=== PATIENT | female | born 1970 | race African-American/Black ===

== ENCOUNTER 2019-02-28 18:36 | Emergency (ER) | payer OTHER ==
[~2019-02-28] VITALS: Ht 157.5 cm; Wt 78.9 kg
[2019-02-28 18:41] VITALS: BP 179/109
[2019-02-28] MEDS ORDERED: COZAAR 25 MG TA25 MG PO (18:45)
[2019-02-28] MEDS ORDERED: METFORMIN HCL500 MG PO (18:45)
[2019-02-28] MEDS ORDERED: BACTRIM DS TAB1 EACH PO (19:08)
== END 2019-02-28 19:28 | disposition home or self-care (01) ==
LOC: ER 18:36
DX: L02.212 Cutaneous abscess of back [any part, except buttock and flank] (principal); Z88.8 Allergy status to other drugs, medicaments and biological substances

== ENCOUNTER → 2020-06-23 | Outpatient (CLI) | payer OTHER ==
[~2020-06-23] MED LIST: BACTRIM DS TAB1 EACH PO; COZAAR 25 MG TA25 MG PO; METFORMIN HCL500 MG PO
[2020-06-23 08:38] LABS: ABSOLUTE NEUTROPHILS 2.7 thou/uL (1.4-8.2); EOSINOPHILS 2.9 % (0.0-3.0); HEMATOCRIT 40.9 % (37.0-47.0); HEMOGLOBIN 13.5 gm/dL (12.0-15.0); LYMPHOCYTES 43.8 % (24.0-44.0); MCH 29.2 pg (26.0-34.0); MCHC 32.9 g/dL (28.0-37.0); MCV 88.8 fL (80.0-100.0); MONOCYTES 7.8 % (1.0-8.0); PLATELET COUNT 283 thou/uL (150-400); POLYS 44.5 % (36.0-66.0); RBC 4.61 mil/uL (4.20-5.00); RDW 12.7 % (10.5-14.5); WBC 6.2 thou/uL (4.0-11.0)
[2020-06-23 08:43] LABS: URINE BILIRUBIN NEGATIVE (Negative); URINE BLOOD NEGATIVE (Negative); URINE CLARITY CLEAR; URINE COLOR YELLOW; URINE GLUCOSE-RANDOM* 3+ (Negative); URINE KETONES NEGATIVE (Negative); URINE LEUKOCYTES-REFLEX NEGATIVE (Negative); URINE NITRITE-REFLEX NEGATIVE (Negative); URINE PROTEIN (DIPSTICK) NEGATIVE (Negative); URINE UROBILINOGEN 0.2 E.U./dl (0.2-1.0)
[2020-06-23 08:57] LABS: ALBUMIN 3.7 g/dL (3.4-5.0); ANION GAP 10 mmol/L (7-16); BUN 6 mg/dL (7-18); CALCIUM 9.7 mg/dL (8.5-10.1); CHLORIDE 101 mmol/L (98-107); CHOLESTEROL 228 mg/dL (<200); CO2 27 mmol/L (21-32); CREATININE 0.8 mg/dL (0.6-1.0); GLUCOSE 352 mg/dL (74-106); HDL CHOLESTEROL 64 mg/dL (>40); LDL CHOLESTEROL 140 mg/dL (<100); POTASSIUM 4.2 mmol/L (3.5-5.1); SGOT 17 U/L (15-37); SGPT 27 U/L (30-65); SODIUM 138 mmol/L (136-145); TC:HDL 3.6 Ratio (Not establshd); TOTAL BILIRUBIN 0.4 mg/dL (0.2-1.0); TOTAL PROTEIN 7.5 g/dL (6.4-8.2); TRIGLYCERIDE 120 mg/dL (<150); VLDL 24 mg/dL (<40)
[2020-06-24 03:06] LABS: GLYCOHEMOGLOBIN (HGB A1C) 11.6 % (4.8-5.6)
== END ==
LOC: LAB 08:09
PROVIDERS: ATTEND Family Medicine
DX: E11.9 Type 2 diabetes mellitus without complications (principal); I10 Essential (primary) hypertension

== ENCOUNTER → 2020-12-09 | Outpatient (CLI) | payer OTHER | LOC: LAB 11:59 | PROVIDERS: ATTEND Family Medicine | DX: E03.9 Hypothyroidism, unspecified (principal) ==